=== PATIENT | female | born 1980 | race Caucasian/White ===

== ENCOUNTER → 2017-10-13 15:12 | Outpatient (CLI) | payer OTHER, SELFPAY ==
[2017-10-13 17:33] LABS: Chlamydia Trachomatis by PCR Negative (Negative); Neisserai gonorrhoeae by PCR Negative (Negative); Probe Check PASS; Sample Adequacy Control PASS; Specimen Processing Control PASS
== END ==
PROVIDERS: Visit Provider Obstetrics & Gynecology
DX: Z11.3 Encounter for screening for infections with a predominantly sexual mode of transmission (principal)
CPT/HCPCS: 87491; 87591

== ENCOUNTER → 2018-04-22 15:39 | Outpatient (CLI) | payer OTHER, SELFPAY | PROVIDERS: Visit Provider Obstetrics & Gynecology | DX: Z36.85 Encounter for antenatal screening for Streptococcus B (principal) | CPT/HCPCS: 87081 ==

== ENCOUNTER 2018-05-19 00:55 | Inpatient (IN) | payer OTHER, SELFPAY ==
[2018-05-19 01:19] VITALS: BMI 29.9
[2018-05-19 01:45] LABS: Hematocrit 40.5 % (37-47); Hemoglobin 13.5 g/dl (12.0-15.0); Mean Corp Hgb Conc 33.3 g/gl (32-36); Mean Corpuscular Volume 93.1 fL (81-99); Mean Platelet Vol. 14.3 fl (6.2-12.0); Platelet Count 127 K/mm3 (150-450); RBC Distribution Width CV 13.5 % (11.6-14.6); RBC Distribution Width SD 45.8 fl (35.1-43.9); Red Blood Count 4.35 M/mm3 (4.2-5.4); White Blood Count 11.9 K/mm3 (4.4-11.0)
[2018-05-19 01:52] LABS: Scan Indicated on CBC? Y/N NO
[2018-05-19] MEDS: Lactated Ringers 1,000 ML 50 ML IV (01:53)
[2018-05-19 03:05] LABS: HIV - WCH Non-Reactive (Nonreactive)
[2018-05-19] MEDS: Oxytocin 30 units/NS 500 ml 30 UNITS/500 ML IV.SOLN 334 UNITS IV (06:24)
[2018-05-19] MEDS: Oxytocin 30 units/NS 500 ml 30 UNITS/500 ML IV.SOLN 167 UNITS IV (06:54)
--- NOTE | 2018-05-19 07:19 | PCM.OB.VAG ---
Vaginal Delivery Maternal Presentation: Active Labor 40 2/7 wk labor Amniotic Membrane Rupture Type: Artificial Amniotic Fluid Description: Clear Final CATA: 05/17/18 Gestational age: 40 Weeks and 2 Days Date of Procedure: 05/19/18 Pre-Operative Diagnosis: 40 2/7 wk labor Post-Operative Diagnosis: same Surgery/ Procedure Performed: Spontaneous Vaginal Delivery Type of Anesthesia: Local with 1% lidocaine Description of Procedure: of a hdz viable male over midline episiotomy. Head delivered TALON. nuchal cord x one reduced at delivery. Loose body cord also reduced. Grimace noted after delivery of head. Meconium noted, OP and nares bulb suctioned on perineum. Shoulders delivered easily. Infant to maternal abdomen with spont cry, good tone and good response to stimulation and drying. Cord clamped x two and cut. Routine cord gases collected. PP exam: R vaginal side wall tear, 1st deg. Repaired under 1% lidocaine without epinephrine to hemostatic and intact with 3-0 Vicryl Rapide. Midline episiotomy without extension then repaired under 1% lidocaine to hemostatic and intact with 3-0 Vicryl Rapide. NO other lacerations noted. Placenta delivered by spont expulsion. 3V cord, normal appearing, intact with trailing membranes. EBL 300 cc Pt and infant tolerated delivery well. To recovery, stable condition Ray Gabriel counts correct x two. Presentation: Vertex, DEMETRIO Placental Delivery Description: Spontaneous Placenta Disposition: [facility] Cord Vessel Description: 3 Vessels Nuchal Cord Compression: Without compression Cord Gases drawn per routine: ABG, VBG Cord Entanglement: Around neck x 1, loose Estimated Blood Loss: 300 A gender: Male (1 minute): 8 (5 minute): 9 Episiotomy Description: Midline - without extension Laceration: Right Mediolateral, 1st degree Medications given after delivery: IV Pitocin Complications: None
--- NOTE | 2018-05-19 07:26 | PCM.DCVAG ---
Discharge Diet: No Restrictions Discharge Activity: May Shower, May Take a Tub Bath May resume sexual activity in: 4-6 weeks Additional Activity Instructions:: Nothing in the vagina for 4-6 weeks. You may return to work/school in 6 weeks. Additional Instructions: If you experience any of the following, contact your healthcare provider. Bleeding that soaks a pad every hour for 2 hours Fever 100.4 or higher Unrelieved abdominal pain Problems urinating (including inability to urinate or burning while urinating). Visual changes Severe headache Flu-like symptoms Pain or redness in one of both of your breasts Pain, warmth, tenderness or swelling in your legs, especially the calf area Frequent nausea and vomiting Symptoms of depression or anxiety If you experience any of the following, call 911 or go to the nearest Emergency Room. Chest pain Problems breathing Seizure activity Partial or complete paralysis of a body part, slurred speech, weakness or drooping of the face, or a sudden inability to walk or hold your balance Allergies/Adverse Reactions: Allergies No Known Allergies Allergy (Verified 05/19/18 01:40) Medications to take at Discharge Ascorbic Acid [Vitamin C] 500 mg PO DAILY 05/19/18 Cholecalciferol (Vitamin D3) [Vitamin D3] 4,000 unit PO DAILY 05/19/18 Ferrous Sulfate 325 mg PO BID 05/19/18 Vits [Prenatabs FA] 1 tablet PO DAILY 05/19/18 Please Follow Up With: Merari Sung MD - [phone] When: Call to make an appointment with your doctor in 6 weeks. Test Results: Test results from this visit will be discussed in further detail at your follow-up appointment, if applicable. Proposed Discharge Date: 05/21/18
--- NOTE | 2018-05-19 07:27 | DCINST_ITS ---
Discharge Diet: No Restrictions Discharge Activity: May Shower, May Take a Tub Bath May resume sexual activity in: 4-6 weeks Additional Activity Instructions:: Nothing in the vagina for 4-6 weeks. You may return to work/school in 6 weeks. Additional Instructions: If you experience any of the following, contact your healthcare provider. * Bleeding that soaks a pad every hour for 2 hours * Fever 100.4 or higher * Unrelieved abdominal pain * Problems urinating (including inability to urinate or burning while urinating). * Visual changes * Severe headache * Flu-like symptoms * Pain or redness in one of both of your breasts * Pain, warmth, tenderness or swelling in your legs, especially the calf area * Frequent nausea and vomiting * Symptoms of depression or anxiety If you experience any of the following, call 911 or go to the nearest Emergency Room. * Chest pain * Problems breathing * Seizure activity * Partial or complete paralysis of a body part, slurred speech, weakness or drooping of the face, or a sudden inability to walk or hold your balance Allergies/Adverse Reactions: Allergies No Known Allergies Allergy (Verified 05/19/18 01:40) Medications to take at Discharge Ascorbic Acid [Vitamin C] 500 mg PO DAILY 05/19/18 Cholecalciferol (Vitamin D3) [Vitamin D3] 4,000 unit PO DAILY 05/19/18 Ferrous Sulfate 325 mg PO BID 05/19/18 Vits [Prenatabs FA] 1 tablet PO DAILY 05/19/18 Please Follow Up With: Merari Sung MD - [phone] When: Call to make an appointment with your doctor in 6 weeks. Test Results: Test results from this visit will be discussed in further detail at your follow- up appointment, if applicable. Proposed Discharge Date: 05/21/18
[2018-05-19] MEDS: Naproxen 250 MG Tablet PO ×2 (08:26→22:38)
[2018-05-19 11:53] VITALS: BP 115/56; PULSE 87; RESP 16; TEMP 37.3; O2SAT 99
[2018-05-19] MEDS: Prenatal Vits Tablet 1 TABLET PO (11:55)
[2018-05-19] MEDS: Acetaminophen 500 MG Tablet 1000 MG PO (15:02)
[2018-05-19 15:12] VITALS: BP 107/54; PULSE 66; RESP 16; TEMP 37.1; O2SAT 99
[2018-05-19 19:40] VITALS: BP 106/61; PULSE 84; RESP 18; TEMP 36.7; O2SAT 98
[2018-05-20 01:14] VITALS: BP 123/56; PULSE 69; RESP 16; TEMP 36.6; O2SAT 98
[2018-05-20 04:32] VITALS: BP 108/59; PULSE 58; RESP 18; TEMP 36.6; O2SAT 97
--- NOTE | 2018-05-20 07:19 | PCM.PN.OB ---
Subjective: Denies heavy lochia. Has some swelling at episiotomy site. She feels well overall and nursing is going well despite having significant oral frenulum. Objective: AVSS - Physical Exam General: Alert, Oriented x3, Cooperative, No apparent distress HEENT: Atraumatic, Normocephalic Lungs: Normal air movement Cardiovascular: Regular rate, Regular Rhythm, Normal S1, Normal S2 Abdomen: Soft, Non Tender, Non-Distended, - - Fundus firm and nontender, lochia scant, perineal repair intact with minimal local edema Extremities: No Calf Tenderness, - - trace b/l LE edema Neurological: Neuro grossly intact Psych/Mental Status: Normal Affect, Appropriate, Alert and oriented to time, place, person, mood and affect Vital Signs Temp Pulse Resp BP Pulse Ox 97.9 F 58 L 18 108/59 L 97 05/20/18 04:32 05/20/18 04:32 05/20/18 04:32 05/20/18 04:32 05/20/18 04:32 Oxygen Delivery Method Room Air Weight: 86.8 kg Body Mass Index (BMI) 29.9 Intake and Output for Last 24 Hours 05/18/18 05/19/18 05/20/18 23:59 23:59 23:59 Intake Total 501 / 501 Output Total 1200 / 1200 Balance -699 / -699 Medical Necessity - Tobacco Use Smoking Status: Never smoker Assessment/Plan 37yo [id number] s/p doing well. -Rh positive -Male infant - for circ -Routine care - -Consider d/c home later today pending circ and continued feeding
--- NOTE | 2018-05-20 07:22 | PN.OBGYN_ITS ---
Subjective: Denies heavy lochia. Has some swelling at episiotomy site. She feels well overall and nursing is going well despite having significant oral f renulum. Objective: AVSS - Physical Exam General: Alert, Oriented x3, Cooperative, No apparent distress HEENT: Atraumatic, Normocephalic Lungs: Normal air movement Cardiovascular: Regular rate, Regular Rhythm, Normal S1, Normal S2 Abdomen: Soft, Non Tender, Non-Distended, - - Fundus firm and nontender, lochia scant, perineal repair intact with minimal local edema Extremities: No Calf Tenderness, - - trace b/l LE edema Neurological: Neuro grossly intact Psych/Mental Status: Normal Affect, Appropriate, Alert and oriented to time, place, person, mood and affect Vital Signs Temp Pulse Resp BP Pulse Ox 97.9 F 58 L 18 108/59 L 97 05/20/18 04:32 05/20/18 04:32 05/20/18 04:32 05/20/18 04:32 05/20/18 04:32 Oxygen Delivery Method Room Air Weight: 86.8 kg Body Mass Index (BMI) 29.9 Intake and Output for Last 24 Hours 05/18/18 05/19/18 05/20/18 23:59 23:59 23:59 Intake Total 501 / 501 Output Total 1200 / 1200 Balance -699 / -699 Medical Necessity - Tobacco Use Smoking Status: Never smoker Assessment/Plan 37yo [id number] s/p doing well. -Rh positive -Male infant - for circ -Routine care - -Consider d/c home later today pending circ and continued feeding
[2018-05-20] MEDS: Prenatal Vits Tablet 1 TABLET PO (09:05)
[2018-05-20] MEDS: Senna/Docusate Sodium 1 Tablet PO (09:05)
[2018-05-20 09:10] VITALS: BP 119/62; PULSE 75; RESP 16; TEMP 36.9; O2SAT 98
[2018-05-20] MEDS: Naproxen 250 MG Tablet PO (09:22)
[2018-05-20 14:00] VITALS: BP 116/59; PULSE 76; RESP 18; TEMP 36.5; O2SAT 96
== END 2018-05-20 17:20 | disposition home or self-care (01) | DRG 807 ==
PROVIDERS: Admitting Provider Obstetrics & Gynecology; Referring Provider Obstetrics & Gynecology; Visit Provider Obstetrics & Gynecology
DX: O69.81X0 Labor and delivery complicated by cord around neck, without compression, not applicable or unspecified (principal); Z37.0 Single live birth; Z3A.40 40 weeks gestation of pregnancy
CPT/HCPCS: 59025; 59050; 85027; 86703; 86850; 86900; 99218; J7120; G0378

== ENCOUNTER → 2019-09-13 | Outpatient (CLI) | payer OTHER, SELFPAY ==
[2019-09-18 19:02] LABS: HPV APTIMA, High Risk Negative (Negative)
== END | disposition home or self-care (01) ==
PROVIDERS: Visit Provider Obstetrics & Gynecology
DX: Z12.4 Encounter for screening for malignant neoplasm of cervix (principal)
CPT/HCPCS: 87624; 88175; G0145

== ENCOUNTER → 2020-07-12 13:12 | Outpatient (CLI) | payer OTHER, SELFPAY ==
[2020-07-12 15:50] LABS: Estradiol 468.6 pg/mL
[2020-07-12 16:03] LABS: Progesterone Level 10.76 ng/mL (See Comment)
[2020-07-12 16:05] LABS: hCG Titer Quant., Serum 58534 mIU/mL (1-3)
== END ==
PROVIDERS: Visit Provider Obstetrics & Gynecology
DX: N97.0 Female infertility associated with anovulation (principal)
CPT/HCPCS: 36415; 82670; 84144; 84702

== ENCOUNTER → 2020-08-02 15:26 | Outpatient (CLI) | payer OTHER, SELFPAY ==
[2020-08-02 16:21] LABS: Absolute Lymphocyte Count 1.62 X10^3/uL (0.83-4.51); Absolute Neutrophil Count 5.7 X10^3/uL (2.0-7.7); Basophil# 0.02 X10^3/uL; Basophil% 0.3 % (0-1); Eosinophil# 0.11 X10^3/uL; Eosinophils% 1.4 % (0-5); Hematocrit 36.1 % (37-47); Hemoglobin 11.7 g/dL (12.0-15.0); Lymphocyte # 1.62 X10^3/ul (0.83-4.51); Lymphocyte % 20.4 % (19-41); Mean Corp Hgb Conc 32.4 g/dL (32-36); Mean Corpuscular Hgb 30.8 pg (27.0-32.0); Monocyte# 0.51 X10^3/uL; Monocyte% 6.4 % (0-10); NRBC Flagged by Analyzer 0 % (0-5); Neutrophil # 5.65 X10^3/uL (2.7-7.7); Neutrophil % 71.1 % (47-70); Platelet Count 172 K/mm3 (150-450); RBC Distribution Width CV 11.9 % (11.6-14.6); RBC Distribution Width SD 41.4 fl (35.1-43.9); White Blood Count 7.9 K/mm3 (4.4-11.0)
[2020-08-02 17:23] LABS: Ferritin 34 ng/mL (8-252)
[2020-08-04 08:59] LABS: HIV - WCH Non-Reactive (Nonreactive); Hepatitis B Surface Antigen Non-Reactive (Nonreactive); Hepatitis C Antibody Non-Reactive (Nonreactive); Progesterone Level 26.41 ng/mL (See Comment); Rubella IgG Reactive (Nonreactive); Syphilis Antibodies Non-reactive; Vitamin B12 232 pg/mL (211-911)
[2020-08-06 20:08] LABS: Chlamydia By Nucleic Acid AMP Negative (Negative)
[2020-08-06 20:41] LABS: Gonococcus By Nucleic Acid AMP Negative (Negative)
== END ==
PROVIDERS: Visit Provider Student in an Organized Health Care Education/Training Program
DX: Z34.91 Encounter for supervision of normal pregnancy, unspecified, first trimester (principal)
CPT/HCPCS: 36415; 82607; 82728; 82746; 84144; 85025; 86703; 86762; 86780; 86803; 87086; 87088; 87340; 87491; 87591

== ENCOUNTER → 2020-09-18 16:30 | Outpatient (CLI) | payer OTHER, SELFPAY | PROVIDERS: Visit Provider Obstetrics & Gynecology | DX: O09.522 Supervision of elderly multigravida, second trimester (principal); Z3A.00 Weeks of gestation of pregnancy not specified | CPT/HCPCS: 36415 ==

== ENCOUNTER → 2021-01-24 | Outpatient (CLI) | payer OTHER, SELFPAY | END | disposition home or self-care (01) | LOC: LABSPEC 16:40 | DX: Z36.85 Encounter for antenatal screening for Streptococcus B (principal) | CPT/HCPCS: 87081 ==

== ENCOUNTER 2021-01-26 03:50 | Outpatient (CLI) | payer OTHER, SELFPAY ==
[2021-01-26 03:57] VITALS: BMI 29.2
[2021-01-26 04:08] VITALS: BP 118/71; TEMP 36.2; O2SAT 98
[2021-01-26 04:09] VITALS: PULSE 60; O2SAT 99
[2021-01-26 04:30] LABS: Color, Urine Straw (Yellow); Glucose, Dipstick Normal (Normal); Ketone-Dipstick Negative (Negative); Leukocyte Esterase-Dipstick 100 /ul (Negative); Nitrite-Dipstick Negative (Negative); Occult Blood-Urine Negative /ul (Negative); Protein-Dipstick Negative (Negative); Specific Gravity, Urine 1.005 (1.002-1.030); Urine Bilirubin Dipstick Negative (Negative); Urine Clarity Sl. Cloudy (Clear); Urine Urobilinogen Normal (Normal)
[2021-01-26 07:31] VITALS: BP 107/62; PULSE 80
[2021-01-26 07:32] VITALS: TEMP 36.7
--- NOTE | 2021-01-26 07:48 | HP.PCM.OB_ITS ---
History and Physical Date of Admission: 01/26/21
--- NOTE | 2021-01-26 07:48 | PCM.HP.BLA ---
History and Physical Date of Admission: 01/26/21
--- NOTE | 2021-01-26 07:55 | PN_ITS ---
Progress Note HPI: 40-year-old at 36/3 weeks, CATA 02/20/2021 by early ultrasound, presenting with pelvic pressure and discomfort. Patient reported pelvic pain starting last night. Denies leaking of fluid, vaginal bleeding. Reports movement. Denies headache, vision changes, chest pain, shortness of breath, nausea or vomiting, diarrhea constipation, fevers or chills. complicated by: Advanced maternal age INSURANCE CLAIMS REPRESENTATIVE history: G1: Full-term 2019, uncomplicated son is carrier for cystic fibrosis gene G2: Current Medical history: Denies Surgical history: [place] teeth extraction Allergies: NKDA Social history: Denies tobacco, drug, alcohol use Family history: Noncontributory Medications: vitamin, B12, Colace, vitamin D, calcium Physical exam: Vital signs:Blood pressure 107/62, pulse 80, temperature 98.1 ?F General: Sleeping in no acute distress HEENT: Normocephalic/atraumatic Cardiorespiratory: No increased effort, regular heart rate Abdomen: Soft/nontender, gravid EXT: No edema CE: 4/50/-3 FHR: 120/moderate variability/+accel/no decel [place]: Irregular contractions upon admission, resolved on discharge Assessment/plan: 40-year-old at 36/3 weeks presenting with pelvic pain. Not in labor. Patient has made no cervical change while in triage. Feeling improved with rest, able to sleep. Pain has resolved. GBS was done at her appointment this past week, pending. Patient given Celestone and will return tomorrow for second dose. Discharge home with precautions.
[2021-01-26] MEDS: Betamethasone/Betamethasone 30 MG/5 ML Vial 12 MG IM (08:42)
== END 2021-01-26 08:45 | disposition home or self-care (01) ==
LOC: WPOUT 03:55 → WP 03:56
PROVIDERS: Visit Provider Student in an Organized Health Care Education/Training Program
DX: O26.893 Other specified pregnancy related conditions, third trimester (principal); R10.2 Pelvic and perineal pain; Z3A.36 36 weeks gestation of pregnancy
CPT/HCPCS: 59025; 59050; 81002; 96372; 99218; G0378; J0702

== ENCOUNTER 2021-01-27 08:20 | Outpatient (CLI) | payer OTHER, SELFPAY ==
[2021-01-27 08:27] VITALS: BMI 29.6
[2021-01-27 08:42] VITALS: BP 119/63; PULSE 76; TEMP 36.8
--- NOTE | 2021-01-27 08:56 | PN_ITS ---
Progress Note 36/4w second dose of celestone
--- NOTE | 2021-01-27 08:56 | PCM.PN.BLA ---
Progress Note 36/4w second dose of celestone
[2021-01-27] MEDS: Betamethasone/Betamethasone 30 MG/5 ML Vial 12 MG IM (08:58)
== END 2021-01-27 09:03 | disposition home or self-care (01) ==
LOC: WPOUT 08:25 → WP 08:26
PROVIDERS: Visit Provider Student in an Organized Health Care Education/Training Program
DX: O26.893 Other specified pregnancy related conditions, third trimester (principal); R10.2 Pelvic and perineal pain; Z3A.36 36 weeks gestation of pregnancy
CPT/HCPCS: 96372; 99218; G0378; J0702

== ENCOUNTER 2021-02-16 12:55 | Inpatient (IN) | payer OTHER, SELFPAY ==
[2021-02-16] VITALS (23 sets, daily range): BP systolic 114–159; BP diastolic 58–82; PULSE 65–77; RESP 16; TEMP 36.5–37.1; O2SAT 97–100; BMI 29.7
[2021-02-16] MEDS: Lactated Ringers 1,000 ML 50 ML IV (13:10)
[2021-02-16 13:19] LABS: ROM Internal Control Test YES-OK TO RESULT pt. (Internal QC); ROM Patient Test Negative (Negative)
[2021-02-16 13:32] LABS: Absolute Lymphocyte Count 1.42 X10^3/uL (0.83-4.51); Absolute Neutrophil Count 8.9 X10^3/uL (2.0-7.7); Basophil# 0.05 X10^3/uL; Basophil% 0.4 % (0-1); Eosinophil# 0.09 X10^3/uL; Eosinophils% 0.8 % (0-5); Hematocrit 32.8 % (37-47); Lymphocyte # 1.42 X10^3/ul (0.83-4.51); Lymphocyte % 12.2 % (19-41); Mean Corp Hgb Conc 33.5 g/dL (32-36); Mean Corpuscular Hgb 30.1 pg (27.0-32.0); Mean Corpuscular Volume 89.9 fL (81-99); Mean Platelet Vol. 13.1 fl (6.2-12.0); Monocyte# 0.87 X10^3/uL; Monocyte% 7.5 % (0-10); NRBC Flagged by Analyzer 0 % (0-5); Neutrophil # 8.91 X10^3/uL (2.7-7.7); Neutrophil % 76.5 % (47-70); Platelet Count 151 K/mm3 (150-450); RBC Distribution Width CV 13.2 % (11.6-14.6); RBC Distribution Width SD 43.6 fl (35.1-43.9); Red Blood Count 3.65 M/mm3 (4.2-5.4); White Blood Count 11.6 K/mm3 (4.4-11.0)
--- NOTE | 2021-02-16 13:57 | PCM.HP.OB ---
HPI - General General Date of Admission: 02/16/21 HPI Narrative JENNIFER WALL, is a 40 F who presents at 39 3/7 weeks gestation with painful contractions and c/o leaking vaginal fluid. 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 Merari Lizarraga MD) Asthma Home Medications ascorbic acid (vitamin C) [Vitamin C] 500 mg PO DAILY 05/19/18 [History Last Taken 01/25/21 20:00] cholecalciferol (vitamin D3) [Vitamin D3] 4,000 unit PO DAILY 05/19/18 [History Last Taken 01/25/21 20:00] [id number] [Prenatabs FA] 1 tab PO DAILY 05/19/18 [History Last Taken 01/27/21 07:30 1 tab] docusate sodium [Colace] 100 mg PO DAILY 01/27/21 [History Last Taken 01/27/21 07:30 100 mg] Allergy/AdvReac Type Severity Reaction Status Date / Time No Known Allergies Allergy Verified 02/16/21 12:45 Family History (Updated 02/16/21 @ 14:[address] Merari Lizarraga MD) Sister Cancer cervical ca, skin ca Father Cancer skin cancer, prostate cancer Hypertension Mother Rheumatoid arteritis Surgical History (Updated 02/16/21 @ 14:08 by Desirae Rider) History of surgery Social History (Updated 02/16/21 @ 14:[address] Merari Lizarraga MD) Smoking Status: Never smoker substance use type: does not use diet: vegetarian History 1 Elective abortions Hx Para 0 Spontaneous abortions Hx # Term Pregnancies Ectopic pregnancies Hx # Pregnancies Multiple births # of living children Past Pregnancies Del. Date Name GA/Weeks Outcome Route Bth Weight Infant Gen Labor Lgth Anesthesia Del Locatn Provider FOB 05/19/18 [place] 40 live - full term 7lb 3oz Male 7 none [place] Benekos Filemon Vital Signs Vital Signs Vital Signs: 02/16/21 13:05 02/16/21 13:06 02/16/21 13:32 Temperature 97.9 F 98.0 F Temperature Source Temporal Tympanic Pulse Rate 66 Blood Pressure 145/78 H BP Systolic 145 BP Diastolic 78 Pulse Ox 98 02/16/21 13:34 02/16/21 13:35 02/16/21 13:36 Temperature 98.1 F Temperature Source Pulse Rate 67 Blood Pressure 159/82 H BP Systolic 159 BP Diastolic 82 Pulse Ox 97 Weight Weight: 88.6 kg Body Mass Index (BMI) 29.7 Physical Exam Const alert, oriented x3 and no apparent distress HEENT normocephalic Resp normal respiratory effort, normal air movement and clear to auscultation bilaterally Cardio regular rate and regular rhythm GI normal to inspection, nondistended, normoactive bowel sounds, soft to palpation, non-tender and non-distended Inspection: gravid Narrative: 6cm per RN exam I performed a bedside US - fetus CEPHALIC, LOP Labs Labs Labs: Blood Type A POSITIVE Antibody Screen NEGATIVE Hct 32.8 % (37-47) L Hgb 11.0 g/dL (12.0-15.0) L Syphilis Total Ab Non-reactive Rubella IgG Antibody Reactive (Nonreactive) Hep Bs Antigen Non-Reactive (Nonreactive) Neisseria gonorrhoeae DNA (CRISTHIAN) Negative (Negative) HIV 1&2 Antibody Non-Reactive (Nonreactive) C.trachomatis DNA (PCR) Negative (Negative) Rhogam given: No Miscellaneous Test Assessment & Plan (1) 39 weeks gestation of : PLAN: Elevated BP - pt asx for preeclampsia Admit in labor GBS neg status reassuring
[2021-02-16] MEDS: Oxytocin 30 units/NS 500 ml 30 UNITS/500 ML IV.SOLN 334 UNITS IV (15:20)
--- NOTE | 2021-02-16 16:01 | EX.PCM.OBRPT ---
Assessment & Plan (1) (spontaneous vaginal delivery): (2) 39 weeks gestation of : Maternal Data Information CATA Calculator Estimated Delivery Date Method Current WG Current Estimate 02/20/21 Ultrasound #1 39w 3d Other Estimates 03/20/21 LMP (Certain) 35w 3d Vaginal Delivery Maternal Presentation Maternal Presentation: Active Labor Operative Information Date of Procedure: 02/16/21 Pre-Operative Diagnosis: 39 weeks 3 days gestation Post-Operative Diagnosis: 39 weeks 3 days gestation Surgery / Procedure Performed: Spontaneous Vaginal Delivery Type of Anesthesia: None Estimated Blood Loss: 200 ml Time of Delivery: 15:00 Findings Description of Procedure: Patient was FD and pushed to deliver a vigorous male infant in OA through a nuchal cord. The cord was reduced and infant placed on the maternal abdomen. The cord was doubly clamped and cut at 5 minutes of life. The placenta delivered spontaneously and appeared intact on inspection. A second degree perineal laceration was repaired with 3-0 Vicryl Rapide. A right superficial vaginal laceration was hemostatic following compression. Sponge and needle counts were correct x 2. Presentation: Vertex Amniotic Membrane Rupture Type: Spontaneous Time of Membrane Rupture: 1200 Amniotic Fluid Description: Clear Placental Delivery Description: Spontaneous Placenta Disposition: [facility] Cord Vessel Description: 3 Vessels Cord Entanglement: Around neck x 1, loose Nuchal Cord Compression: Without compression Infant A Gender: Male (1 minute): 8 (5 minute): 9 Delayed Cord Clamping: Yes Post Vaginal Delivery Medications Given After Delivery: IV Pitocin Episiotomy Description: None Laceration: Midline and 2nd degree Complication Complications: None
[2021-02-16] MEDS: Ibuprofen 600 MG Tablet PO ×2 (16:04→23:59)
[2021-02-16] MEDS: Acetaminophen 500 MG Tablet 1000 MG PO (17:01)
--- NOTE | 2021-02-16 21:16 | NURSING ---
Both MOB and FOB are CPR certified, both parents are still reviewing the IPAD CPR video for a refresher.
[2021-02-17] VITALS (8 sets, daily range): BP systolic 112–122; BP diastolic 55–59; PULSE 68–83; RESP 16; TEMP 36.6–36.9; O2SAT 97
[2021-02-17] MEDS: Acetaminophen 500 MG Tablet 1000 MG PO ×2 (00:45→10:47)
[2021-02-17 05:58] LABS: Hematocrit 30.5 % (37-47); Hemoglobin 10.2 g/dL (12.0-15.0); Mean Corp Hgb Conc 33.4 g/dL (32-36); Mean Corpuscular Hgb 30.1 pg (27.0-32.0); Platelet Count 132 K/mm3 (150-450); RBC Distribution Width CV 13.3 % (11.6-14.6); RBC Distribution Width SD 43.2 fl (35.1-43.9); Red Blood Count 3.39 M/mm3 (4.2-5.4); White Blood Count 13.6 K/mm3 (4.4-11.0)
[2021-02-17] MEDS: Ibuprofen 600 MG Tablet PO ×2 (08:03→14:43)
--- NOTE | 2021-02-17 09:09 | PCM.PN.OB ---
Subjective Subjective Reports intense cramping, is manageable with NSAIDs and heating pad. Denies heavy lochia. No voiding difficulty. She is breast-feeding. Objective Data Objective Data Vital Signs: Vital Signs Temp Pulse Resp BP Pulse Ox 98.4 F 68 16 116/59 L 97 02/17/21 08:06 02/17/21 08:06 02/17/21 08:06 02/17/21 08:06 02/17/21 08:06 Oxygen Delivery Method Room Air Weight: 88.6 kg Body Mass Index (BMI) 29.7 Intake & Output: Intake and Output for Last 24 Hours 02/15/21 02/16/21 02/17/21 23:59 23:59 23:59 Intake Total 525 / 525 Output Total 400 / 400 Balance 125 / 125 Lab / Micro Data Result Diagrams: 02/17/21 05:45 Labs: Laboratory Results - last 24 hr 02/16/21 12:50: Vag Amniotic Fld Detect Negative 02/16/21 13:10: WBC 11.6 H, RBC 3.65 L, Hgb 11.0 L, Hct 32.8 L, MCV 89.9, MCH 30.1, MCHC 33.5, RDW Std Deviation 43.6, RDW Coeff of Court 13.2, Plt Count 151, MPV 13.1 H, Immature Gran % (Auto) 2.600 H, Neut % (Auto) 76.5 H, Lymph % (Auto) 12.2 L, [place] % (Auto) 7.5, Eos % (Auto) 0.8, Baso % (Auto) 0.4, Absolute Neuts (auto) 8.9 H, Absolute Lymphs (auto) 1.42, Nucleated RBC % 0 02/16/21 13:10: Blood Type A POSITIVE, Antibody Screen NEGATIVE 02/17/21 05:45: WBC 13.6 H, RBC 3.39 L, Hgb 10.2 L, Hct 30.5 L, MCV 90.0, MCH 30.1, MCHC 33.4, RDW Std Deviation 43.2, RDW Coeff of Court 13.3, Plt Count 132 L, MPV 13.0 H Micro: Microbiology 02/16/21 13:20 Nasal Secretion SARS-CoV-2 Antigen (Rapid) - Final Physical Exam Const alert, oriented x3 and no apparent distress Resp normal respiratory effort and normal air movement Cardio regular rate, regular rhythm, S1 normal heart sound and S2 normal heart sound Uterus Palpation: uterus fundus firm (At 2 fingerbreadths below umbilicus) and other OB fundus nontender Extremity no calf tenderness and no pedal edema Neuro oriented x3 Assessment & Plan (1) (spontaneous vaginal delivery): PLAN: day #1 status post A+ Breast-feeding Routine care Plan for DC home later today
--- NOTE | 2021-02-17 09:12 | PCM.DC ---
Discharge Instructions Diet Discharge Diet: No restrictions Activity Discharge Activity: Return to Normal Activity May resume sexual activity in: 6 weeks Lifting Restrictions: 20 lb Dressing / Incision Call your doctor if you observe: Fever of 101 or Higher, Using more than 1 pad per hour, Shortness of breath, Chest pain, Calf discomfort, Uncontrolled pain and - (Persistent or severe headache) Follow Up Care Please Follow Up With: Merari Lizarraga MD When: 3 weeks for telehealth follow up 6 weeks for visit Test Results: Test results from this visit will be discussed in further detail at your follow-up appointment, if applicable. Discharge Plan Admission Admit Date/Time: 02/16/21 12:55 Attending Provider: Merari Downey Discharge Orders/Prescriptions Prescriptions: No Action ascorbic acid (vitamin C) [Vitamin C] 500 MG tablet 500 mg PO DAILY RF: 0 cholecalciferol (vitamin D3) [Vitamin D3] 2,000 UNIT tablet 4,000 unit PO DAILY RF: 0 Prenatabs FA 1 TABLET tablet 1 tab PO DAILY RF: 0 docusate sodium [Colace] 100 mg Capsule 100 mg PO DAILY RF: 0
[2021-02-17] MEDS: Prenatal Vits Tablet 1 TABLET PO (10:47)
[2021-02-17] MEDS: guaiFENesin Dm 10 ML UDC PO (13:39)
== END 2021-02-17 16:25 | disposition home or self-care (01) | DRG 807 ==
LOC: WP 13:05 → WPOUT 13:06 → WP 13:07
PROVIDERS: Admitting Provider Pediatrics; Visit Provider Obstetrics & Gynecology
DX: O69.81X0 Labor and delivery complicated by cord around neck, without compression, not applicable or unspecified (principal); Z37.0 Single live birth; O70.1 Second degree perineal laceration during delivery; Z3A.39 39 weeks gestation of pregnancy
CPT/HCPCS: 84112; 85025; 85027; 86850; 86900; 86901; 87426; 99218; J7120; G0378

== ENCOUNTER 2021-05-16 15:26 | Outpatient (CLI) | payer OTHER, SELFPAY ==
[2021-05-22 14:28] LABS: HPV Reflexed? NOT INDICATED
== END 2021-05-16 23:59 | disposition home or self-care (01) ==
PROVIDERS: Visit Provider Obstetrics & Gynecology
DX: Z12.4 Encounter for screening for malignant neoplasm of cervix (principal)
CPT/HCPCS: 88175; G0145